=== PATIENT | male | born 1960 | race Caucasian/White ===

== ENCOUNTER → 2016-12-06 | Outpatient (CLI) | payer OTHER ==
[~2016-12-06] MED LIST: CERTRIZINE PO; DICL75TA2 PO; FLUT16SP17 NASAL; OMEP40CA6 PO
--- NOTE | 2016-12-06 13:44 | RADRPT ---
PROCEDURE: Small bowel follow-through. CLINICAL INDICATION: Abdomen pain. TECHNIQUE: Barium was administered orally and several spot and overhead radiographs of the abdomen were obtained. COMPARISON: None. FINDINGS: The preliminary radiograph is normal. There is no small bowel displacement or mass. The small bowel folds are normal. There is no evidence of obstruction. Transit time is normal with contrast in the colon at 30 minutes. Spot views of the terminal ileum are unremarkable with no mass or other abnormality. 1 minute fluor oscopy time was used. IMPRESSION: 1. Normal small bowel follow-through. RPTAT: QQ .Elieser Salazar MD, MD Date Time Electronically viewed and signed by .Elieser Salazar MD, on 12/06/2016 13:44 .R/
== END | disposition home or self-care (01) ==
LOC: RAD 09:03
PROVIDERS: ATTEND Internal Medicine
DX: R19.7 Diarrhea, unspecified (principal)
CPT/HCPCS: 74250

== ENCOUNTER 2017-01-07 14:12 | Emergency (ER) | payer OTHER ==
[~2017-01-07] VITALS: Ht 165.1 cm; Wt 100.0 kg
[~2017-01-07 14:12] MED LIST changes: +CIPR500T4 PO; +CLOT30CR35 TOP; +FOLI-49 PO; +LORA10TA3 PO; +NITR-58 PO; +PHEN-538 PO; +TAMS0.4C2 PO
[2017-01-07 14:26] VITALS: Ht 165.1 cm; Wt 100.0 kg
[2017-01-07 15:32] LABS: URINE BLOOD (Dip) POC 1+ (NEGATIVE)
[2017-01-07] MEDS ORDERED: CEFTRIAXONE 1 GM/50 ML (PMX) 50 ML IVPB STA (15:46)
[2017-01-07 16:06] LABS: ADD SCAN DIFF NO
[2017-01-07 16:09] LABS: BASOPHIL # 0.1 10^3/ul (0.0-0.1); BASOPHILS % 0.2 % (0.0-2.0); EOSINOPHILS # 0.1 10^3/ul (0.0-0.5); EOSINOPHILS % 0.2 % (0.0-7.0); HEMATOCRIT 47.6 % (42.0-52.0); HEMOGLOBIN 15.8 g/dl (14.0-18.0); LYMPHOCYTES # 1.9 10^3/ul (0.8-2.9); LYMPHOCYTES % 8.3 % (15.0-51.0); MEAN CORPUSCULAR HEMOGLOBIN 29.8 pg (29.0-33.0); MEAN CORPUSCULAR HGB CONC 33.2 g/dl (32.0-37.0); MEAN CORPUSCULAR VOLUME 89.6 fl (82.0-101.0); MEAN PLATELET VOLUME 9.4 fl (7.4-10.4); MONOCYTE # 1.3 10^3/ul (0.3-0.9); MONOCYTES % 5.9 % (0.0-11.0); NEUTROPHIL # 19.2 10^3/ul (1.6-7.5); NEUTROPHILS % 84.5 % (39.0-77.0); PLATELET COUNT 238 10^3/UL (140-415); RED BLOOD COUNT 5.31 10^6/ul (4.70-6.10); RED CELL DISTRIBUTION WIDTH 13.2 % (11.5-14.5); WHITE BLOOD COUNT 22.7 10^3/ul (4.8-10.8)
[2017-01-07] MEDS ORDERED: SOD CHLORIDE 0.9% 1,000 ML IV ONE (16:35)
[2017-01-07 16:44] LABS: ALBUMIN 4.2 g/dl (3.3-4.9); POTASSIUM 3.5 mmol/L (3.5-5.1)
[2017-01-07 16:46] LABS: CREATININE 0.89 mg/dl (0.61-1.24)
[2017-01-07 16:47] LABS: BILIRUBIN,INDIRECT 1.1 mg/dl (0-1.1); BILIRUBIN,TOTAL 1.1 mg/dl (0.2-1.3); CALCIUM 9.1 mg/dl (8.4-10.2); TOTAL PROTEIN 8.4 g/dl (6.1-8.1)
[2017-01-07] MEDS ORDERED: ACETAMINOPHEN 325 MG TAB PO ONE (17:00)
[2017-01-07] MEDS ORDERED: CIPR500T4 PO (17:25)
[2017-01-07] MEDS ORDERED: IBUP-1542 PO (17:25)
--- NOTE | 2017-01-07 17:30 | ERD ---
ER Documentation Chief Complaint Date/Time DATE: 01/07/17 TIME: 17:28 Chief Complaint DIFFICULTY URINATION HPI This 56-year-old male presents with dysuria and urge incontinence since yesterday. He has a history of UTI as well as prostate surgery more than a year ago. He was seen at another hospital yesterday prescribed Macrobid but presents again today with continued urge incontinence and sensation of chills. He denies any measured fevers. Denies any chest pain, shortness breath, vomiting, upper abdominal pain. Some mild lower suprapubic pain. He had this once before a year ago urinary tract infection working at a job where he has to hold his urine. ROS All systems reviewed and are negative except as per history of present illness. Medications Home Meds Active Scripts Ciprofloxacin Hcl* (Ciprofloxacin Hcl*) 500 Mg Tablet, 500 MG PO BID for 10 Days , TAB Prov:MICHAEL KAY MD 01/07/17 Ibuprofen* (Motrin*) 600 Mg Tab, 600 MG PO Q6, #20 TAB Prov:MICHAEL KAY MD 01/07/17 Reported Medications Omeprazole* (Omeprazole*) 40 Mg Capsule.dr, 40 MG PO DAILY, #30 CAP 08/15/16 [Certrizine] No Conflict Check, 10 MG PO DAILY 08/15/16 Diclofenac Sodium* (Diclofenac Sodium*) 75 Mg Tablet.dr, 75 MG PO BID, #60 TAB 08/15/16 Fluticasone Propionate* (Fluticasone Propionate* Nasal) 50 Mcg/[place] - 16 Gm [place].susp, 1 SPRAY NASAL BID, EA TO EACH NOSTRIL 02/02/15 Allergies Allergies: Coded Allergies: sulfamethoxazole (Verified Allergy, Unknown, 01/07/17) trimethoprim (Verified Allergy, Unknown, 01/07/17) PMhx/Soc History of Surgery: Yes (PROSTATE) Anesthesia Reaction: No Hx Neurological Disorder: No Hx Respiratory Disorders: No Hx Cardiac Disorders: No Hx Psychiatric Problems: No Hx Miscellaneous Medical Probl: Yes (SEASONAL ALLERGIES) Hx Alcohol Use: Yes (OCC) Hx Substance Use: No Hx Tobacco Use: No Physical Exam Vitals Vital Signs Date Time Temp Pulse Resp B/P Pulse Ox O2 Delivery O2 Flow Rate FiO2 01/07/17 14:26 100.4 108 24 133/74 95 Physical Exam Const: [] Pleasant, not ill-appearing. Head: Atraumatic Eyes: Normal Conjunctiva ENT: Normal External Ears, Nose and Mouth. Neck: Full range of motion..~ No meningismus. Resp: Clear to auscultation bilaterally Cardio: Regular rate and rhythm, no murmurs Abd: Soft, minimal suprapubic tenderness. No tenderness at McBurney's point no Sun sign and no rebound., non distended. Normal bowel sounds Skin: No petechiae or rashes Back: No midline or flank tenderness Ext: No cyanosis, or edema Neur: Awake and alert Psych: Normal Mood and Affect Result Diagram: 01/07/17 1555 01/07/17 1555 Results 24 hrs Laboratory Tests Test 01/07/17 15:33 01/07/17 15:55 Bedside Urine pH (LAB) 6.0 Bedside Urine Protein (LAB) 1+ Bedside Urine Glucose (UA) 0.1% Bedside Urine Ketones (LAB) Negative Bedside Urine Blood 1+ Bedside Urine Nitrite (LAB) Positive Bedside Urine Leukocyte Esterase (L Trace White Blood Count 22.710^3/ul Red Blood Count 5.3110^6/ul Hemoglobin 15.8g/dl Hematocrit 47.6% Mean Corpuscular Volume 89.6fl Mean Corpuscular Hemoglobin 29.8pg Mean Corpuscular Hemoglobin Concent 33.2g/dl Red Cell Distribution Width 13.2% Platelet Count 48393^3/UL Mean Platelet Volume 9.4fl Neutrophils % 84.5% Lymphocytes % 8.3% Monocytes % 5.9% Eosinophils % 0.2% Basophils % 0.2% Nucleated Red Blood Cells % 0.0/100WBC Neutrophils # 19.210^3/ul Lymphocytes # 1.910^3/ul Monocytes # 1.310^3/ul Eosinophils # 0.110^3/ul Basophils # 0.110^3/ul Nucleated Red Blood Cells # 0.010^3/ul Sodium Level 136mmol/L Potassium Level 3.5mmol/L Chloride Level 98mmol/L Carbon Dioxide Level 26mmol/L Anion Gap 16 Blood Urea Nitrogen 10mg/dl Creatinine 0.89mg/dl Glucose Level 116mg/dl Calcium Level 9.1mg/dl Total Bilirubin 1.1mg/dl Direct Bilirubin 0.00mg/dl Indirect Bilirubin 1.1mg/dl Aspartate Amino Transf (AST/SGOT) 18IU/L Alanine Aminotransferase (ALT/SGPT) 24IU/L Alkaline Phosphatase 119IU/L Total Protein 8.4g/dl Albumin 4.2g/dl Globulin 4.20g/dl Albumin/Globulin Ratio 1.00 Current Medications Medications (Trade) Dose Ordered Sig/Karen Route PRN Reason Start Time Stop Time Status Last Admin Dose Admin Ceftriaxone Sodium (Rocephin) 50 ml @ 100 mls/hr ONCE STAT IVPB 01/07/17 15:46 01/07/17 16:15 DC 01/07/17 15:58 Acetaminophen 650 mg 650 mg ONCE ONCE PO 01/07/17 17:00 01/07/17 17:01 DC 01/07/17 16:51 Sodium Chloride (NS) 1,000 ml @ 0 mls/hr Q0M ONCE IV 01/07/17 16:35 01/07/17 16:48 DC 01/07/17 16:51 Procedures/MDM Urine shows positive leukocytes, hemoglobin and nitrites. Negative for glucose. Urine was sent for culture. Given the chills and symptoms despite outpatient treatment and IV was obtained. CBC shows a white blood cell count of 22. CMP is normal. Patient was given 1 L normal saline IV and Rocephin 1 g IV. Patient was noted to be amatory without vomiting, and benign abdomen on serial exam. Patient presents with signs and symptoms suggestive urinary tract infection. There is no current evidence to suggest sepsis, acute abdomen. He was treated with Cipro, instructions for clear fluids and close observation. Patient should return for vomiting, worsening pain, new worsening symptoms the next day or with primary care doctor this week. The patient was stable with no new complaints during the ER course. Clinically, there is no current evidence to suggest meningitis, sepsis, acute abdomen, pneumonia, acute coronary syndrome , pulmonary embolism, or any other emergent condition appearing to require further evaluation or hospitalization. The patient should certainly return for any new or worsening symptoms per the aftercare instructions. They should otherwise follow-up with her primary care doctor for reevaluation this week. Departure Diagnosis: Primary Impression: UTI (urinary tract infection) Urinary tract infection type: acute cystitis Hematuria presence: without hematuria Qualified Code: N30.00 - Acute cystitis without hematuria Condition: Stable Patient Instructions: Understanding Urinary Tract Infections (UTIs) Additional Instructions: Recheck for new or worsening symptoms or primary care doctor. MICHAEL KAY MD Jan 07, 2017 17:30
[2017-01-07 17:53] VITALS: BP 129/76; PULSE 76; RESP 19; TEMP 98.2
== END 2017-01-07 17:56 | disposition home or self-care (01) ==
LOC: FTE 14:12
DX: N30.00 Acute cystitis without hematuria (principal)
CPT/HCPCS: 36415; 80053; 81003; 85025; 87086; 96374; J0696; J7030; Z7502; Z7610

== ENCOUNTER 2017-02-02 15:07 | Emergency (ER) | payer OTHER ==
[~2017-02-02] VITALS: Ht 165.1 cm; Wt 101.5 kg
[~2017-02-02 15:07] MED LIST changes: -CLOT30CR35 TOP; -FOLI-49 PO; +IBUP-1542 PO; -LORA10TA3 PO; -NITR-58 PO; -PHEN-538 PO; -TAMS0.4C2 PO
[2017-02-02 15:11] VITALS: Ht 165.1 cm; Wt 101.5 kg
[2017-02-02] MEDS ORDERED: ACETAMINOPHEN 500 MG TAB PO STA (15:57)
[2017-02-02] MEDS ORDERED: SOD CHLORIDE 0.9% 1,000 ML IV ONE (16:00)
[2017-02-02 16:13] LABS: URINE BLOOD (Dip) POC 2+ (NEGATIVE)
[2017-02-02 16:42] LABS: ADD SCAN DIFF NO
[2017-02-02 16:44] LABS: BASOPHILS % 0.2 % (0.0-2.0); EOSINOPHILS # 0.1 10^3/ul (0.0-0.5); EOSINOPHILS % 0.7 % (0.0-7.0); HEMATOCRIT 45.2 % (42.0-52.0); HEMOGLOBIN 14.5 g/dl (14.0-18.0); LYMPHOCYTES # 1.6 10^3/ul (0.8-2.9); LYMPHOCYTES % 11.6 % (15.0-51.0); MEAN CORPUSCULAR HEMOGLOBIN 28.7 pg (29.0-33.0); MEAN CORPUSCULAR HGB CONC 32.1 g/dl (32.0-37.0); MEAN CORPUSCULAR VOLUME 89.3 fl (82.0-101.0); MEAN PLATELET VOLUME 9.6 fl (7.4-10.4); MONOCYTE # 0.8 10^3/ul (0.3-0.9); MONOCYTES % 5.9 % (0.0-11.0); NEUTROPHILS % 81.1 % (39.0-77.0); PLATELET COUNT 238 10^3/UL (140-415); RED BLOOD COUNT 5.06 10^6/ul (4.70-6.10); RED CELL DISTRIBUTION WIDTH 13.1 % (11.5-14.5); WHITE BLOOD COUNT 13.6 10^3/ul (4.8-10.8)
[2017-02-02 16:58] LABS: ALBUMIN 4.1 g/dl (3.3-4.9)
[2017-02-02 16:59] LABS: POTASSIUM 3.8 mmol/L (3.5-5.1)
[2017-02-02 17:01] LABS: ALBUMIN/GLOBULIN RATIO 1.07; BILIRUBIN,INDIRECT 0.3 mg/dl (0-1.1); BILIRUBIN,TOTAL 0.3 mg/dl (0.2-1.3); CREATININE 0.86 mg/dl (0.61-1.24); TOTAL PROTEIN 7.9 g/dl (6.1-8.1)
[2017-02-02 17:02] LABS: CALCIUM 8.8 mg/dl (8.4-10.2)
[2017-02-02 17:42] LABS: ADD UMIC YES; URINE BILIRUBIN (Dip) NEGATIVE (NEGATIVE); URINE BLOOD (Dip) 1+ (NEGATIVE); URINE COLOR LT. YELLOW (YELLOW); URINE GLUCOSE (Dip) NEGATIVE (NEGATIVE); URINE KETONES (Dip) NEGATIVE (NEGATIVE); URINE LEUKOCYTE ESTERASE (Dip) NEGATIVE (NEGATIVE); URINE NITRITE (Dip) NEGATIVE (NEGATIVE); URINE TOTAL PROTEIN (Dip) TRACE (NEGATIVE); URINE UROBILINOGEN (Dip) 0.2 E.U./dL (0.1-1.0)
[2017-02-02 18:21] VITALS: BP 113/72; PULSE 84; RESP 18; TEMP 98.4
[2017-02-02] MEDS ORDERED: NITR-58 PO (18:57)
[2017-02-03] MEDS ORDERED: CIPR500T4 PO (20:08)
[2017-02-03] MEDS ORDERED: ACET500C5 PO (20:08)
--- NOTE | 2017-02-04 20:19 | ERD ---
ER Documentation Chief Complaint Date/Time DATE: 02/04/17 TIME: 20:13 Chief Complaint painful urination HPI This is a 56 year old male presenting to ER for dysuria. Patient has relevant medical history for overactive bladder and previous prostatectomy. Patient states today he developed dysuria, urinary frequency and urinary urgency. Denies hematuria. Patient states he has these symptoms often due to his overactive bladder. Denies flank pain. Denies suprapubic tenderness. Tactile fevers at home. No nausea, vomiting, diarrhea or abdominal pain. ROS All systems reviewed and are negative except as per history of present illness. Medications Home Meds Active Scripts Acetaminophen* (Tylophen*) 500 Mg Capsule, 1 CAP PO Q6H Y for PAIN AND OR ELEVATED TEMP, #20 CAP Prov:MICHAEL KAY MD 02/03/17 Ciprofloxacin Hcl* (Ciprofloxacin Hcl*) 500 Mg Tablet, 500 MG PO BID for 10 Days , TAB Prov:MICHAEL KAY MD 02/03/17 Nitrofurantoin Monohyd Macrocr* (Macrobid*) 100 Mg Capsr, 100 MG PO BID for 5 Days, CAP Prov:OPAL BORDEN NP 02/02/17 Ciprofloxacin Hcl* (Ciprofloxacin Hcl*) 500 Mg Tablet, 500 MG PO BID for 10 Days , TAB Prov:MICHAEL KAY MD 01/07/17 Ibuprofen* (Motrin*) 600 Mg Tab, 600 MG PO Q6, #20 TAB Prov:MICHAEL KAY MD 01/07/17 Reported Medications Omeprazole* (Omeprazole*) 40 Mg Capsule.dr, 40 MG PO DAILY, #30 CAP 08/15/16 [Certrizine] No Conflict Check, 10 MG PO DAILY 08/15/16 Diclofenac Sodium* (Diclofenac Sodium*) 75 Mg Tablet.dr, 75 MG PO BID, #60 TAB 08/15/16 Fluticasone Propionate* (Fluticasone Propionate* Nasal) 50 Mcg/[place] - 16 Gm [place].susp, 1 SPRAY NASAL BID, EA TO EACH NOSTRIL 02/02/15 Allergies Allergies: Coded Allergies: sulfamethoxazole (Verified Allergy, Unknown, 02/03/17) trimethoprim (Verified Allergy, Unknown, 02/03/17) PMhx/Soc History of Surgery: Yes (PROSTATE) Anesthesia Reaction: No Hx Neurological Disorder: No Hx Respiratory Disorders: No Hx Cardiac Disorders: No Hx Psychiatric Problems: No Hx Miscellaneous Medical Probl: Yes (SEASONAL ALLERGIES) Hx Alcohol Use: Yes (OCC) Hx Tobacco Use: No Physical Exam Vitals Vital Signs Date Time Temp Pulse Resp B/P Pulse Ox O2 Delivery O2 Flow Rate FiO2 02/02/17 18:21 98.4 84 18 113/72 100 Room Air 02/02/17 15:11 100.9 107 22 138/78 100 Physical Exam Const: alert, non ill appearing Head: Atraumatic Eyes: Normal Conjunctiva ENT: Normal External Ears, Nose and Mouth. Neck: Full range of motion..~ No meningismus. Resp: Clear to auscultation bilaterally Cardio: Regular rate and rhythm, no murmurs Abd: Soft, non tender, non distended. Normal bowel sounds Skin: No petechiae or rashes Back: No midline or flank tenderness Ext: No cyanosis, or edema Neur: Awake and alert Psych: Normal Mood and Affect Result Diagram: 02/02/17 1607 02/02/17 1607 Results 24 hrs Laboratory Tests Test 02/02/17 16:07 02/02/17 16:15 02/02/17 17:23 White Blood Count 13.610^3/ul Red Blood Count 5.0610^6/ul Hemoglobin 14.5g/dl Hematocrit 45.2% Mean Corpuscular Volume 89.3fl Mean Corpuscular Hemoglobin 28.7pg Mean Corpuscular Hemoglobin Concent 32.1g/dl Red Cell Distribution Width 13.1% Platelet Count 65387^3/UL Mean Platelet Volume 9.6fl Neutrophils % 81.1% Lymphocytes % 11.6% Monocytes % 5.9% Eosinophils % 0.7% Basophils % 0.2% Nucleated Red Blood Cells % 0.0/100WBC Neutrophils # 11.010^3/ul Lymphocytes # 1.610^3/ul Monocytes # 0.810^3/ul Eosinophils # 0.110^3/ul Basophils # 0.010^3/ul Nucleated Red Blood Cells # 0.010^3/ul Sodium Level 139mmol/L Potassium Level 3.8mmol/L Chloride Level 101mmol/L Carbon Dioxide Level 26mmol/L Anion Gap 16 Blood Urea Nitrogen 16mg/dl Creatinine 0.86mg/dl Glucose Level 113mg/dl Calcium Level 8.8mg/dl Total Bilirubin 0.3mg/dl Direct Bilirubin 0.00mg/dl Indirect Bilirubin 0.3mg/dl Aspartate Amino Transf (AST/SGOT) 27IU/L Alanine Aminotransferase (ALT/SGPT) 43IU/L Alkaline Phosphatase 112IU/L Total Protein 7.9g/dl Albumin 4.1g/dl Globulin 3.80g/dl Albumin/Globulin Ratio 1.07 Bedside Urine pH (LAB) 5.5 Bedside Urine Protein (LAB) 1+ Bedside Urine Glucose (UA) Negative Bedside Urine Ketones (LAB) Negative Bedside Urine Blood 2+ Bedside Urine Nitrite (LAB) Negative Bedside Urine Leukocyte Esterase (L Negative Urine Color LT. YELLOW Urine Clarity CLEAR Urine pH 5.5 Urine Specific [place] 1.025 Urine Ketones NEGATIVE Urine Nitrite NEGATIVE Urine Bilirubin NEGATIVE Urine Urobilinogen 0.2 E.U./dL Urine Leukocyte Esterase NEGATIVE Urine Microscopic RBC 10-25/HPF Urine Microscopic WBC NONE SEEN/HPF Urine Epithelial Cells FEW Urine Hemoglobin 1+ Urine Glucose NEGATIVE% Urine Total Protein TRACE Current Medications Medications (Trade) Dose Ordered Sig/Karen Route PRN Reason Start Time Stop Time Status Last Admin Dose Admin Acetaminophen 500 mg 500 mg ONCE STAT PO 02/02/17 15:57 02/02/17 15:58 DC 02/02/17 16:01 Sodium Chloride (NS) 1,000 ml @ 1,000 mls/hr Q1H ONCE IV 02/02/17 16:00 02/02/17 16:59 DC 02/02/17 16:04 Procedures/MDM MDM: 56 year old male presents to ER with dysuria, urinary frequency and urinary urgency. No urinary incontinence. Patient has history of overactive bladder and previous prostatectomy. IV access obtained and patient given 1L IV fluid bolus of normal saline. Labs are unremarkable with slightly elevated WBC. Temp upon arrival is 100.7F and tachycardia of 107bpm upon arrival. Patient given Tylenol while in the ED. Temp and HR reduced. Urine shows 2+ blood and 1+ protein. Based on patients symptoms, patient will be treated for presumed UTI. Patient appears stable and appropriate for discharge home. Low suspicion for pyelonephritis or sepsis. Differential diagnosis includes but not limited to UTI, overactive bladder syndrome, prostatitis or nephrolithiasis. Patient is appropirate for outpatient management and will be discharged with prescription for Macrobid. Instructed patient to follow up with PCP in the next 2-3 days. Patient also needs urgent follow up with urology. Resources provide. Patient verbalizes understanding. All questions answered at discharge. Departure Diagnosis: Primary Impression: Genitourinary symptoms Condition: Stable Patient Instructions: Urinary Tract Infections in Men Referrals: MICHAEL LAMA (PCP) KRYS OG MD [facility] YOU HAVE RECEIVED A MEDICAL SCREENING EXAM AND THE RESULTS INDICATE THAT YOU DO NOT HAVE A CONDITION THAT REQUIRES URGENT TREATMENT IN THE EMERGENCY DEPARTMENT. FURTHER EVALUATION AND TREATMENT OF YOUR CONDITION CAN WAIT UNTIL YOU ARE SEEN IN YOUR DOCTORS OFFICE WITHIN THE NEXT 1-2 DAYS. IT IS YOUR RESPONSIBILITY TO MAKE AN APPOINTMENT FOR FOLOW-UP CARE. IF YOU HAVE A PRIMARY DOCTOR --you should call your primary doctor and schedule an appointment IF YOU DO NOT HAVE A PRIMARY DOCTOR YOU CAN CALL OUR PHYSICIAN REFERRAL HOTLINE AT IF YOU CAN NOT AFFORD TO SEE A PHYSICIAN YOU CAN CHOSE FROM THE FOLLOWING [facility] [address] [facility] [address] [facility] [facility] [address] [facility] [address] [facility] [address] [facility]. [facility]. [address] [facility]. [facility] YOU HAVE RECEIVED A MEDICAL SCREENING EXAM AND THE RESULTS INDICATE THAT YOU DO NOT HAVE A CONDITION THAT REQUIRES URGENT TREATMENT IN THE EMERGENCY DEPARTMENT. FURTHER EVALUATION AND TREATMENT OF YOUR CONDITION CAN WAIT UNTIL YOU ARE SEEN IN YOUR DOCTORS OFFICE WITHIN THE NEXT 1-2 DAYS. IT IS YOUR RESPONSIBILITY TO MAKE AN APPOINTMENT FOR FOLOW-UP CARE. IF YOU HAVE A PRIMARY DOCTOR --you should call your primary doctor and schedule and appointment IF YOU DO NOT HAVE A PRIMARY DOCTOR YOU CAN CALL OUR PHYSICIAN REFERRAL HOTLINE AT . IF YOU CAN NOT AFFORD TO SEE A PHYSICIAN YOU CAN CHOSE FROM THE FOLLOWING [facility] INSTITUTIONS: [facility] [id number] [place] [address] [facility] [address] [place] [address] [facility] [address] [place] [address] Additional Instructions: Call your primary care doctor TOMORROW for an appointment during the next 2-3 days.See the doctor sooner or return here if your condition worsens before your appointment time. Follow-up with urologist as soon as possible. Return to ED for any high fever, chest pain, difficulty breathing, shortness breath, wheezing, vomiting, diarrhea, abdominal pain or any new or worsening symptoms. OPAL BORDEN NP February 04, 2017 20:19
== END 2017-02-02 19:17 | disposition home or self-care (01) ==
LOC: FTE 15:07
DX: R30.0 Dysuria (principal)
CPT/HCPCS: 36415; 80053; 81001; 85025; J7030; Z7502; Z7610; 81003

== ENCOUNTER 2017-02-03 17:52 | Emergency (ER) | payer OTHER ==
[~2017-02-03] VITALS: Ht 162.6 cm; Wt 89.0 kg
[~2017-02-03 17:52] MED LIST changes: +NITR-58 PO
[2017-02-03 17:54] VITALS: Ht 162.6 cm; Wt 89.0 kg
[2017-02-03] MEDS ORDERED: ACETAMINOPHEN 325 MG TAB PO ONE (19:00)
[2017-02-03 19:30] LABS: ADD UMIC YES; URINE BILIRUBIN (Dip) NEGATIVE (NEGATIVE); URINE BLOOD (Dip) 1+ (NEGATIVE); URINE COLOR LT. YELLOW (YELLOW); URINE GLUCOSE (Dip) NEGATIVE (NEGATIVE); URINE KETONES (Dip) NEGATIVE (NEGATIVE); URINE LEUKOCYTE ESTERASE (Dip) TRACE (NEGATIVE); URINE NITRITE (Dip) NEGATIVE (NEGATIVE); URINE TOTAL PROTEIN (Dip) NEGATIVE (NEGATIVE); URINE UROBILINOGEN (Dip) 0.2 E.U./dL (0.1-1.0)
--- NOTE | 2017-02-03 20:07 | ERD ---
ER Documentation Chief Complaint Date/Time DATE: 02/03/17 TIME: 20:05 Chief Complaint seen here yesterday c/o same dysuria took 4 pills of antibiotics (MICHAEL VEGAS MD) HPI This 56-year-old male complains of dysuria last 2-3 days. He is seen here yesterday and prescribed Macrobid. His urine was positive for hemoglobin yesterday but no leukocytes or white blood cells. She has a history of documented UTI and approximate one month ago. Patient has a fever triage today compared a low-grade temperature at triage yesterday. He has a cough, vomiting, diarrhea, abdominal pain. His symptoms are limited to his dysuria. (MICHAEL VEGAS MD) ROS All systems reviewed and are negative except as per history of present illness. (MICHAEL VEGAS MD) Medications Home Meds Active Scripts Acetaminophen* (Tylophen*) 500 Mg Capsule, 1 CAP PO Q6H Y for PAIN AND OR ELEVATED TEMP, #20 CAP Prov:MICHAEL VEGAS MD 02/03/17 Ciprofloxacin Hcl* (Ciprofloxacin Hcl*) 500 Mg Tablet, 500 MG PO BID for 10 Days , TAB Prov:MICHAEL VEGAS MD 02/03/17 Nitrofurantoin Monohyd Macrocr* (Macrobid*) 100 Mg Capsr, 100 MG PO BID for 5 Days, CAP Prov:OPAL BORDEN NP 02/02/17 Ciprofloxacin Hcl* (Ciprofloxacin Hcl*) 500 Mg Tablet, 500 MG PO BID for 10 Days , TAB Prov:MICHAEL VEGAS MD 01/07/17 Ibuprofen* (Motrin*) 600 Mg Tab, 600 MG PO Q6, #20 TAB Prov:MICHAEL VEGAS MD 01/07/17 Reported Medications Omeprazole* (Omeprazole*) 40 Mg Capsule.dr, 40 MG PO DAILY, #30 CAP 08/15/16 [Certrizine] No Conflict Check, 10 MG PO DAILY 08/15/16 Diclofenac Sodium* (Diclofenac Sodium*) 75 Mg Tablet.dr, 75 MG PO BID, #60 TAB 08/15/16 Fluticasone Propionate* (Fluticasone Propionate* Nasal) 50 Mcg/[place] - 16 Gm [place].susp, 1 SPRAY NASAL BID, EA TO EACH NOSTRIL 02/02/15 Allergies Allergies: Coded Allergies: sulfamethoxazole (Verified Allergy, Unknown, 02/03/17) trimethoprim (Verified Allergy, Unknown, 02/03/17) PMhx/Soc History of Surgery: Yes (PROSTATE) Anesthesia Reaction: No Hx Neurological Disorder: No Hx Respiratory Disorders: No Hx Cardiac Disorders: No Hx Psychiatric Problems: No Hx Miscellaneous Medical Probl: Yes (SEASONAL ALLERGIES) Hx Alcohol Use: Yes (OCC) Hx Substance Use: No Hx Tobacco Use: No (MICHAEL VEGAS MD) Physical Exam Vitals Vital Signs Date Time Temp Pulse Resp B/P Pulse Ox O2 Delivery O2 Flow Rate FiO2 02/03/17 17:54 101.5 99 20 134/84 99 (MERCY ARANGO NP) Physical Exam Const: [] Alert, not ill-appearing. Morbidly obese. Head: Atraumatic Eyes: Normal Conjunctiva ENT: Normal External Ears, Nose and Mouth. Neck: Full range of motion..~ No meningismus. Resp: Clear to auscultation bilaterally Cardio: Regular rate and rhythm, no murmurs Abd: Soft, non tender. Minimal suprapubic tenderness., non distended. Normal bowel sounds Skin: No petechiae or rashes Back: No midline or flank tenderness Ext: No cyanosis, or edema Neur: Awake and alert Psych: Normal Mood and Affect (MICHEAL VEGAS MD) Results 24 hrs Laboratory Tests Test 02/03/17 18:39 Urine Color LT. YELLOW Urine Clarity CLEAR Urine pH 6.0 Urine Specific [place] <=1.005 Urine Ketones NEGATIVE Urine Nitrite NEGATIVE Urine Bilirubin NEGATIVE Urine Urobilinogen 0.2 E.U./dL Urine Leukocyte Esterase TRACE Urine Microscopic RBC 2-5/HPF Urine Microscopic WBC 10-25/HPF Urine Hemoglobin 1+ Urine Glucose NEGATIVE% Urine Total Protein NEGATIVE Current Medications Medications (Trade) Dose Ordered Sig/Karen Route PRN Reason Start Time Stop Time Status Last Admin Dose Admin Acetaminophen (Tylenol Tab) 650 mg ONCE ONCE PO 02/03/17 19:00 02/03/17 19:01 DC 02/03/17 19:26 PROCEDURE: CT Abdomen and Pelvis without contrast. CLINICAL INDICATION: Abdominal pain TECHNIQUE: CT scan of the abdomen and pelvis without contrast was performed on a multidetector high-resolution CT scanner. Coronal and sagittal reformatted images were obtained from the axial source images. Images were reviewed on a high-resolution PACS workstation. The total exam CTDI equals 22.4 mGy and the total exam DLP equals 1262 mGy-cm. COMPARISON: Small bowel follow-through dated 12/06/2016 FINDINGS: CT abdomen: The lung bases are clear. The heart size is normal. No pericardial effusion identified. The liver demonstrates normal size and density. No liver mass identified. The gallbladder is unremarkable. There is no intrahepatic or extrahepatic biliary dilatation. The spleen is normal in size. No focal splenic abnormality identified. No gross abnormality of the stomach is identified. The pancreas is unremarkable. The adrenal glands appear normal. 2.2 cm cyst in the upper pole of the left kidney The kidneys are unremarkable. There is no evidence of renal mass, renal calculi or hydronephrosis. The aorta is of normal caliber. No adenopathy identified. The bowel and mesentery are unremarkable. The appendix is not visualized. There is no pericecal inflammatory change to suggest appendicitis. CT pelvis: The urinary bladder is completely decompressed and appears thickened, likely due to decompressed state. The pelvic organs are otherwise normal. The pelvic sidewalls and inguinal regions are clear. The sigmoid colon and rectum are unremarkable. No adenopathy, free fluid or inflammatory change identified. The osseous structures are remarkable for mild degenerative spondylosis of the spine. 6 mm sclerotic focus in the left femoral neck likely represents bone island. IMPRESSION: 1. 2.2 cm cyst in the upper pole left kidney. 2. No mass, lymphadenopathy, or focal acute inflammatory process is identified. RPTAT: II .Matthew Moran MD, Date Time Electronically viewed and signed by .Matthew Moran MD, on 02/03/2017 22: 51 .M/ CC: MICHAEL VEGAS MD ([facility] ARANGO NP) Procedures/MDM Urine today shows trace leukocyte esterase with some white blood cells. Urine was sent for culture. CT abdomen and pelvis without contrast pending given persistent symptoms. Further evaluation treatment will be signed out to mid- level [employer] supervising ER physician. Patient presents with fever and UTI symptoms suggestive of worsening urine check infection despite Macrobid. (MICHAEL VEGAS MD) Patient was signed out to me by Dr. Vegas pending CT abdomen and pelvis results. CT showed a 2 cm cyst on the pole of left kidney, otherwise negative. I do not feel the patient requires IV antibiotic at this time. Dr. Vegas had given patient prescription of Cipro and Tylenol. Patient appears well, suitable for outpatient management. I informed patient of the CT results, and advised patient to follow-up with a urologist. Patient discharged per Dr. Vegas's instructions. Patient condition at discharge: Good. (MERCY ARANGO NP) Departure Diagnosis: Primary Impression: UTI (urinary tract infection) Urinary tract infection type: acute cystitis Hematuria presence: without hematuria Qualified Code: N30.00 - Acute cystitis without hematuria Additional Impression: Fever Fever type: unspecified Qualified Code: R50.9 - Fever, unspecified fever cause Condition: Stable MICHAEL VEGAS MD February 03, 2017 20:07 MER[facility] ARANGO NP February 03, 2017 23:15
[2017-02-03] MEDS ORDERED: ACET500C5 PO (20:08)
[2017-02-03] MEDS ORDERED: CIPR500T4 PO (20:08)
--- NOTE | 2017-02-03 22:52 | RADRPT ---
PROCEDURE: CT Abdomen and Pelvis without contrast. CLINICAL INDICATION: Abdominal pain TECHNIQUE: CT scan of the abdomen and pelvis without contrast was performed on a multidetector hig h-resolution CT scanner. Coronal and sagittal reformatted images were obtained from the axial [facility] e images. Images were reviewed on a high-resolution PACS workstation. The total exam CTDI equals 22. 4 mGy and the total exam DLP equals 1262 mGy-cm. COMPARISON: Small bowel follow-through dated 12/06/2016 FINDINGS: CT abdomen: The lung bases are clear. The heart size is normal. No pericardial effusion identified. The liver demonstrates normal size and density. No liver mass identified. The gallbladder is unremarkable. There is no intrahepatic or extrahepatic biliary dilatation. The spleen is normal in size. No focal splenic abnormality identified. No gross abnormality of the stomach is identified. The pancreas is unremarkable. The adrenal glands appear normal. 2.2 cm cyst in the upper pole of the left kidney The kidneys are unremarkable. There is no evidence of renal mass, renal calculi or hydronephrosis. The aorta is of normal caliber. No adenopathy identified. The bowel and mesentery are unremarkable. The appendix is not visualized. There is no pericecal inflammatory change to suggest appendicitis. CT pelvis: The urinary bladder is completely decompressed and appears thickened, likely due to decompressed sta te. The pelvic organs are otherwise normal. The pelvic sidewalls and inguinal regions are clear. The sigmoid colon and rectum are unremarkable. No adenopathy, free fluid or inflammatory change identified. The osseous structures are remarkable for mild degenerative spondylosis of the spine. 6 mm sclerotic focus in the left femoral neck likely represents bone island. IMPRESSION: 1. 2.2 cm cyst in the upper pole left kidney. 2. No mass, lymphadenopathy, or focal acute inflammatory process is identified. RPTAT: II .Matthew Moran MD, Date Time Electronically viewed and signed by .Matthew Moran MD, on 02/03/2017 22:51 .M/
== END 2017-02-03 23:16 | disposition home or self-care (01) ==
LOC: FTE 17:52
DX: N30.01 Acute cystitis with hematuria (principal); R50.9 Fever, unspecified
CPT/HCPCS: 74176; 81001; 87086; Z7502; Z7610; 81003